=== PATIENT | male | born 1965 | race Caucasian/White ===

== ENCOUNTER → 2020-09-01 14:07 | Outpatient (BNVA) | payer OTHER, SELFPAY | PROVIDERS: PCP Internal Medicine; Visit Provider Urology | DX: N40.1 Benign prostatic hyperplasia with lower urinary tract symptoms (principal); R97.20 Elevated prostate specific antigen [PSA] | CPT/HCPCS: 51798 ==

== ENCOUNTER → 2021-10-05 10:15 | Outpatient (BNVA) | payer BC, SELFPAY | PROVIDERS: PCP Internal Medicine; Visit Provider Urology | DX: N40.1 Benign prostatic hyperplasia with lower urinary tract symptoms (principal); R97.20 Elevated prostate specific antigen [PSA] | CPT/HCPCS: 51798 ==

== ENCOUNTER → 2022-10-12 09:30 | Outpatient (BNVA) | payer BC, SELFPAY | PROVIDERS: PCP Internal Medicine; Visit Provider Urology | DX: R97.20 Elevated prostate specific antigen [PSA] (principal); N40.1 Benign prostatic hyperplasia with lower urinary tract symptoms; R39.14 Feeling of incomplete bladder emptying; R39.12 Poor urinary stream; R35.1 Nocturia | CPT/HCPCS: 51798 ==

== ENCOUNTER 2023-04-11 10:34 | Outpatient (AMB) | payer BC, SELFPAY ==
--- NOTE | 2023-04-11 10:34 | A.OFFVIS_ITS ---
Intake Intake Visit Reasons: 6m/PSA(set) Intake Note: Patient is present for Follow Up PSA Urology Med: None Antibiotic Allergy: None Blood Thinner: None Core Inserter Required: No Accompanied by: Self / Same As Patient Allergies No Known Allergies Allergy (Verified 10/12/22 09:43) HPI HPI Comments History of Present Illness Details Lavon LOPEZ is a very pleasant male. They are a patient of Dr Simon. They are seen in the office today for the following urologic conditions. - lower urinary tract symptoms - rising PSA Telemedicine Evaluation 15 min Consultation [employer] Crystal Video attempted Stable urinary performance with good flow PSA remaining relatively stable No lingering side effects from finasteride Continue 6 month review Will space out to 1 year if continued stability Known large prostate 85 g Lower Urinary Tract Symptoms: Effective emptying, good stream Current visit is for further evaluation of, lower urinary tract symptoms, predominate obstructive symptoms. Prior treatments include 01/08 , procedure - hospital [facility] Prostate Symptom Score 5/19 , Moderate (9-19), Bother 3. Symptoms include 09/07 , incomplete emptying, weak stream, nocturia (>2), and are progressing. Results from testing include renal/bladder us Yes date 07/29/2018 PVR 85 prostate size 100 Prior Prostate Score unknown. PSA 08/08 5.9 (slow climb over past 3 years) 08/09 PSA 3.1 Free 14%, 08/10 3.1, 08/11 4.7 15%, 03/13 2.4, 10/12 4.4 12%, 04/13 4.3 Prostate volume 50+gm Bladder US 100gm. Prior finasteride use showed decline in PSA however associated with side effects including decreased ejaculatory volume Treatment plan 6m PSA. [facility] Medical History Benign prostatic hyperplasia with lower urinary tract symptoms Elevated PSA Feeling of incomplete bladder emptying Urinary urgency Surgical History History of surgery Review of Systems Const All systems reviewed & are unremarkable except as noted in HPI and below Reports no additional complaints Resp Reports no additional complaints GI Reports no additional complaints Reports as per HPI Musc Reports no additional complaints Physical Exam Telemedicine evaluation Appropriate responses Regular breathing rate and rhythm HEENT Head: Yes normal to inspection Ears: hearing grossly normal bilaterally Eyes General: appearance normal, both eyes and all related structures Neck Neck: Yes normal visual inspection Chest Chest palpation & inspection: normal inspection of the chest Resp Effort & Inspection: normal respiratory effort and able to speak in complete sentences Assessment & Plan Assessment & Plan (1) Benign prostatic hyperplasia with lower urinary tract symptoms: Code(s): N40.1 - Benign prostatic hyperplasia with lower urinary tract symptoms (2) Elevated PSA: Code(s): R97.20 - Elevated prostate specific antigen [PSA] Plan Six month follow-up Orders: Orders PSA,Total (Free>4and<10) 6 Months R97.20 - Elevated prostate specific antigen [PSA] Patient Instructions: Imaging studies, laboratory and physical exam results were discussed and reviewed in detail. No major barriers to patient understanding were identified. An opportunity to ask questions regarding the treatment plan was provided. All questions were answered. The patient expressed understanding and agreement with the above treatment plan. The patient is aware they should contact our office by phone for worsening of their current condition or the appearance of new urologic symptoms. Compliance is encouraged with any medications and followup testing that is ordered. It is a privilege to participate in the urologic care of your patient. If you have any questions or concerns regarding treatment for the above conditions, or other urologic issues, please do not hesitate to contact me. The office telephone contact is [phone]. This note is constructed using voice recognition software. While every effort has been made to ensure accuracy tire shop mechanic errors may have been included. Yours sincerely, Dr Azeem Werner MD, [facility] - Urology Providers of Expert, Compassionate Care for the Genitourinary System Telehealth Telehealth Location of provider rendering services: practice address Location of patient: address on file Patient Identification confirmed using: Name, : Yes Telehealth method: video Patient verbally consented to treatment: Yes Patient verbally consented to billing insurance company: Yes Patient informed of any privacy concerns related to visit: Yes Coding Level of Care Code Tele Est Pt Level 3 (23272) Diagnoses Benign prostatic hyperplasia with lower urinary tract symptoms N40.1 Elevated PSA R97.20
== END 2023-04-11 11:14 | disposition home or self-care (01) ==
LOC: HO.HUSH 10:34
PROVIDERS: PCP Internal Medicine; Visit Provider Urology
DX: N40.1 Benign prostatic hyperplasia with lower urinary tract symptoms (principal); R97.20 Elevated prostate specific antigen [PSA]
CPT/HCPCS: 99213

== ENCOUNTER → 2023-04-11 10:34 | Outpatient (BNVA) | payer BC, SELFPAY | PROVIDERS: PCP Internal Medicine; Visit Provider Urology ==

== ENCOUNTER 2023-10-17 10:22 | Outpatient (AMB) | payer BC, SELFPAY ==
--- NOTE | 2023-10-17 10:24 | MHC.OFFVIS ---
Intake Visit Reasons: 1Y PSA/PVR(SET) Intake Note: Patient is present for PSA/PVR Urology Medication:none Antibiotic Allergy:none Blood Thinner:none Recruiter Account Manager Required: No Allergies No Known Allergies Allergy (Verified 10/17/23 10:35) Medication List - Last Reconciled 10/17/23 by Azeem Werner MD citalopram 20 mg PO DAILY dorzolamide-timolol 22.3-6.8 mg/mL mL ophthalmic (eye) econazole 1% appl topical DAILY PRN ketoconazole 2% topical 2XW losartan-hydrochlorothiazide 100-12.5 mg 1 tab PO DAILY valacyclovir 0 mg PO HPI Comments Details: Lavon LOPEZ is a very pleasant male. They are a patient of Dr Simon. They are seen in the office today for the following urologic conditions. - lower urinary tract symptoms - rising PSA Stable urinary performance with good flow Slight rise in PSA to 5.3 Tissue negative at time of TURP Known large prostate 85 g Will move ahead with prostate MRI Lower Urinary Tract Symptoms: Effective emptying, good stream Current visit is for further evaluation of, lower urinary tract symptoms, predominate obstructive symptoms. Prior treatments include 01/08 , procedure - [facility] Prostate Symptom Score 5/19 , Moderate (9-19), Bother 3. Symptoms include 09/07 , incomplete emptying, weak stream, nocturia (>2), and are progressing. Results from testing include renal/bladder us Yes date 07/29/2018 PVR 85 prostate size 100 Prior Prostate Score unknown. PSA 08/08 5.9 (slow climb over past 3 years) 08/09 PSA 3.1 Free 14%, 08/10 3.1, 08/11 4.7 15%, 03/13 2.4, 10/12 4.4 12%, 04/13 4.3 , 10/13 5.3 Prostate volume 50+gm Bladder US 100gm. Prior finasteride use showed decline in PSA however associated with side effects including decreased ejaculatory volume [facility] Medical History Benign prostatic hyperplasia with lower urinary tract symptoms Elevated PSA Feeling of incomplete bladder emptying Urinary urgency Surgical History History of surgery Results AMB Urinalysis, Automated UA Leukoctes 0 Usha/uL Last Edit by Darien Chacon on 10/17/23 10:38 UA Nitrite Negative Last Edit by Darien Chacon on 10/17/23 10:38 UA Urobilinogen 0.2 mg/dL Last Edit by Darien Chacon on 10/17/23 10:38 UA Protein 0 mg/dL Last Edit by Darien Chacon on 10/17/23 10:38 UA pH 6.0 Last Edit by Darien Chacon on 10/17/23 10:38 UA Blood 0 Vsihal/uL Last Edit by [employer]hossein [email or web address] on 10/17/23 10:38 UA Specific [place] 1.005 Last Edit by [email or web address] on 10/17/23 10:38 UA Ketone Negative Last Edit by Darien Chacon on 10/17/23 10:38 UA Bilirubin 0 mg/dL Last Edit by Darien Chacon on 10/17/23 10:38 UA Glucose 0 mg/dL Last Edit by [employer] Chacon on 10/17/23 10:38 Results Reviewed Results Reviewed: Laboratory Last Values Urine pH (Auto) 6.0 10/17/23 10:37 Specific [place] (Auto) 1.005 10/17/23 10:37 Urine Protein (Auto) 0 mg/dL 10/17/23 10:37 Glucose (UA)(Auto) 0 mg/dL 10/17/23 10:37 Urine Ketones (Auto) Negative 10/17/23 10:37 Urine Blood (Auto) 0 Vishal/uL 10/17/23 10:37 Urine Nitrite (Auto) Negative 10/17/23 10:37 Urine Bilirubin (Auto) 0 mg/dL 10/17/23 10:37 Urine Urobilinogen (Auto) 0.2 mg/dL 10/17/23 10:37 Leukocyte Esterase (Auto) 0 Usha/uL 10/17/23 10:37 Assessment & Plan Assessment & Plan (1) Benign prostatic hyperplasia with lower urinary tract symptoms: Code(s): N40.1 - Benign prostatic hyperplasia with lower urinary tract symptoms Category: Medical (2) Elevated PSA: Code(s): R97.20 - Elevated prostate specific antigen [PSA] Category: Medical Plan Plan prostate MRI Orders: Orders AMB Urinalysis Automated Today Z13.9 - Encounter for screening, unspecified MR pelvis wo/w con Today R97.20 - Elevated prostate specific antigen [PSA] AMB Post Void Residual by ultrasound Today N40.1 - Benign prostatic hyperplasia with lower urinary tract symptoms Patient Instructions: Imaging studies, laboratory and physical exam results were discussed and reviewed in detail. No major barriers to patient understanding were identified. An opportunity to ask questions regarding the treatment plan was provided. All questions were answered. The patient expressed understanding and agreement with the above treatment plan. The patient is aware they should contact our office by phone for worsening of their current condition or the appearance of new urologic symptoms. Compliance is encouraged with any medications and followup testing that is ordered. It is a privilege to participate in the urologic care of your patient. If you have any questions or concerns regarding treatment for the above conditions, or other urologic issues, please do not hesitate to contact me. The office telephone contact is [phone]. This note is constructed using voice recognition software. While every effort has been made to ensure accuracy j2ee architect errors may have been included. Yours sincerely, Dr Aezem Werner MD, [facility] - Urology Providers of Expert, Compassionate Care for the Genitourinary System Coding Level of Care Code Est Pt Level 4 (45162) Diagnoses Benign prostatic hyperplasia with lower urinary tract symptoms N40.1 Elevated PSA R97.20
== END 2023-10-17 11:02 | disposition home or self-care (01) ==
PROVIDERS: PCP Internal Medicine; Visit Provider Urology
DX: N40.1 Benign prostatic hyperplasia with lower urinary tract symptoms (principal); R97.20 Elevated prostate specific antigen [PSA]; Z13.9 Encounter for screening, unspecified
CPT/HCPCS: 99214

== ENCOUNTER → 2023-10-17 10:22 | Outpatient (BNVA) | payer BC, SELFPAY | PROVIDERS: PCP Internal Medicine; Visit Provider Urology | DX: N40.1 Benign prostatic hyperplasia with lower urinary tract symptoms (principal); R33.8 Other retention of urine; R35.1 Nocturia; R39.12 Poor urinary stream; R97.20 Elevated prostate specific antigen [PSA] | CPT/HCPCS: 81003 ==

== ENCOUNTER 2023-12-11 15:13 | Outpatient (AMB) | payer BC, SELFPAY ==
--- NOTE | 2023-12-11 15:15 | MHC.OFFVIS ---
Intake Visit Reasons: MRI Follow Up Intake Note: Patient is present for MRI results Wharf Labourer Required: No Allergies No Known Allergies Allergy (Verified 10/17/23 10:35) HPI Comments Details: Lavon LOPEZ is a very pleasant male. They are a patient of Dr Simon. They are seen in the office today for the following urologic conditions. - lower urinary tract symptoms - rising PSA Telemedicine Evaluation 15 min Consultation [employer] Crystal Video attempted Follow-up from prostate MRI imaging Prostate MRI - 11/12 85 g gland, small area defined as PI-RADS 3 equivocal 5mm Stable urinary performance with good flow Slight rise in PSA to 5.3 Tissue negative at time of TURP Known large prostate 85 g Continue six-month surveillance Lower Urinary Tract Symptoms: Effective emptying, good stream Current visit is for further evaluation of, lower urinary tract symptoms, predominate obstructive symptoms. Prior treatments include 01/08 , procedure - [facility] Prostate Symptom Score 5/19 , Moderate (9-19), Bother 3. Symptoms include 09/07 , incomplete emptying, weak stream, nocturia (>2), and are progressing. Results from testing include renal/bladder us Yes date 07/29/2018 PVR 85 prostate size 100 Prior Prostate Score unknown. PSA 08/08 5.9 (slow climb over past 3 years) 08/09 PSA 3.1 Free 14%, 08/10 3.1, 08/11 4.7 15%, 03/13 2.4, 10/12 4.4 12%, 04/13 4.3 , 10/13 5.3 Bladder US 100gm. Prior finasteride use showed decline in PSA however associated with side effects including decreased ejaculatory volume [facility] Medical History Benign prostatic hyperplasia with lower urinary tract symptoms Elevated PSA Feeling of incomplete bladder emptying Urinary urgency Surgical History History of surgery Review of Systems Const All systems reviewed & are unremarkable except as noted in HPI and below Reports no additional complaints Resp Reports no additional complaints GI Reports no additional complaints Reports as per HPI Musc Reports no additional complaints Physical Exam Telemedicine evaluation Appropriate responses Regular breathing rate and rhythm HEENT Head: Yes normal to inspection Ears: hearing grossly normal bilaterally Eyes General: appearance normal, both eyes and all related structures Neck Neck: Yes normal visual inspection Chest Chest palpation & inspection: normal inspection of the chest Resp Effort & Inspection: normal respiratory effort and able to speak in complete sentences Telehealth Telehealth Telehealth Platform: [employer] Location of provider rendering services: practice address Location of patient: address on file Patient Identification confirmed using: Name, : Yes Telehealth method: video Patient verbally consented to treatment: Yes Patient verbally consented to billing insurance company: Yes Patient informed of any privacy concerns related to visit: Yes Minutes spent on Phone/Video with Pt.: 15 Assessment & Plan Assessment & Plan (1) Elevated PSA: Code(s): R97.20 - Elevated prostate specific antigen [PSA] Category: Medical (2) Benign prostatic hyperplasia with lower urinary tract symptoms: Code(s): N40.1 - Benign prostatic hyperplasia with lower urinary tract symptoms Category: Medical Plan Six-month follow-up imaging Orders: Orders PSA,Total (Free>4and<10) 6 Months R97.20 - Elevated prostate specific antigen [PSA] Patient Instructions: Imaging studies, laboratory and physical exam results were discussed and reviewed in detail. No major barriers to patient understanding were identified. An opportunity to ask questions regarding the treatment plan was provided. All questions were answered. The patient expressed understanding and agreement with the above treatment plan. The patient is aware they should contact our office by phone for worsening of their current condition or the appearance of new urologic symptoms. Compliance is encouraged with any medications and followup testing that is ordered. It is a privilege to participate in the urologic care of your patient. If you have any questions or concerns regarding treatment for the above conditions, or other urologic issues, please do not hesitate to contact me. The office telephone contact is [phone]. This note is constructed using voice recognition software. While every effort has been made to ensure accuracy catering administrative assistant errors may have been included. Yours sincerely, Dr Azeem Werner MD, [facility] - Urology Providers of Expert, Compassionate Care for the Genitourinary System Coding Level of Care Code Tele Est Pt Level 3 (38265) Diagnoses Elevated PSA R97.20 Benign prostatic hyperplasia with lower urinary tract symptoms N40.1
== END 2023-12-11 16:08 | disposition home or self-care (01) ==
LOC: HO.HUSH 15:13
PROVIDERS: PCP Internal Medicine; Visit Provider Urology
DX: R97.20 Elevated prostate specific antigen [PSA] (principal); N40.1 Benign prostatic hyperplasia with lower urinary tract symptoms
CPT/HCPCS: 99213

== ENCOUNTER → 2023-12-11 15:13 | Outpatient (BNVA) | payer BC, SELFPAY | PROVIDERS: PCP Internal Medicine; Visit Provider Urology ==

== ENCOUNTER 2024-12-30 11:37 | Outpatient (AMB) | payer BC, SELFPAY ==
--- NOTE | 2024-12-30 11:37 | MHC.OFFVIS ---
Intake Visit Reasons: 6m/PSA Intake Note: patient presents today for: telehealth 6mo/PSA urology medications: none blood thinners: none labs done 09/25/24: PSA 5.5 Marine Resource Economist Required: No Accompanied by: Self / Same As Patient Allergies No Known Allergies Allergy (Verified 12/30/24 11:38) HPI Comments Details: Lavon LOPEZ is a very pleasant male. They are a patient of Dr Simon. They are seen in the office today for the following urologic conditions. - lower urinary tract symptoms - rising PSA Telemedicine Evaluation 15 min Consultation [employer] Crystal Video attempted Discussed PSA Continue surveillance PSA surveillance - Prostate MRI - 11/12 85 g gland, small area defined as PI-RADS 3 equivocal 5mm Tissue negative at time of TURP Known large prostate 85 g Lower Urinary Tract Symptoms: Effective emptying, good stream Current visit is for further evaluation of, lower urinary tract symptoms, predominate obstructive symptoms. Prior treatments include 01/08 , procedure - [facility] Prostate Symptom Score 5/ , Moderate (9-19), Bother 3. Symptoms include 09/07 , incomplete emptying, weak stream, nocturia (>2), and are progressing. Results from testing include renal/bladder us Yes date 07/29/2018 PVR 85 prostate size 100 Prior Prostate Score unknown. PSA 08/08 5.9 (slow climb over past 3 years) 08/09 PSA 3.1 Free 14%, 08/10 3.1, 08/11 4.7 15%, 03/13 2.4, 10/12 4.4 12%, 04/13 4.3 , 10/13 5.3, 10/14 5.5 Bladder US 100gm. Prior finasteride use showed decline in PSA however associated with side effects including decreased ejaculatory volume [facility] Medical History Benign prostatic hyperplasia with lower urinary tract symptoms Elevated PSA Feeling of incomplete bladder emptying Urinary urgency Surgical History History of surgery Review of Systems Const All systems reviewed & are unremarkable except as noted in HPI and below Reports no additional complaints Resp Reports no additional complaints GI Reports no additional complaints Reports as per HPI Musc Reports no additional complaints Physical Exam Telemedicine evaluation Appropriate responses Regular breathing rate and rhythm HEENT Head: Yes normal to inspection Ears: hearing grossly normal bilaterally Eyes General: appearance normal, both eyes and all related structures Neck Neck: Yes normal visual inspection Chest Chest palpation & inspection: normal inspection of the chest Resp Effort & Inspection: normal respiratory effort and able to speak in complete sentences Telehealth Telehealth Telehealth Platform: [employer] Location of provider rendering services: practice address Location of patient: address on file Patient Identification confirmed using: Name, : Yes Telehealth method: video Patient verbally consented to treatment: Yes Patient verbally consented to billing insurance company: Yes Patient informed of any privacy concerns related to visit: Yes Minutes spent on Phone/Video with Pt.: 15 Assessment & Plan Assessment & Plan (1) Benign prostatic hyperplasia with lower urinary tract symptoms: Code(s): N40.1 - Benign prostatic hyperplasia with lower urinary tract symptoms Category: Medical (2) Elevated PSA: Code(s): R97.20 - Elevated prostate specific antigen [PSA] Category: Medical Plan Four month follow-up PSA Orders: Orders PSA,Total (Free>4and<10) 12 Months R97.20 - Elevated prostate specific antigen [PSA] Patient Instructions: This note is constructed using voice recognition software. While every effort has been made to ensure accuracy training and development officer errors may have been included. Imaging studies, laboratory and physical exam results were discussed and reviewed in detail. No major barriers to patient understanding were identified. An opportunity to ask questions regarding the treatment plan was provided. All questions were answered. The patient expressed understanding and agreement with the above treatment plan. The patient is aware they should contact our office by phone for worsening of their current condition or the appearance of new urologic symptoms. Compliance is encouraged with any medications and followup testing that is ordered. It is a privilege to participate in the urologic care of your patient. If you have any questions or concerns regarding treatment for the above conditions, or other urologic issues, please do not hesitate to contact me. The office telephone contact is [phone]. Sincerely, Dr Azeem Werner MD, [facility] - Urology Compassionate Specialist Care for the Genitourinary System Coding Level of Care Code Tele Est Pt Level 4 (29363) Diagnoses Benign prostatic hyperplasia with lower urinary tract symptoms N40.1 Elevated PSA R97.20
--- OUTSIDE RECORDS SUMMARY | 2024-12-30 14:46 | XMS_ITS | Clinical Summary ---
Author Organization [facility] Address [address] [place] [address] Care Team Providers Care Door To Door Selling Distributor Name Role Phone Teresa Lopez Primary Care Provider Unavailab le Medications Valsartan (DIOVAN) 40 MG tablet 0 04/06/2019 Active Active Problems Problem Noted Date Diagnosed Date High cholesterol 04/06/2019 Tinnitus of left ear 04/06/2019 Bilateral sensorineural hearing loss 04/06/2019 Family History Medical History Relation Name Comments Hypertension Other hypertension : Family History Relation Name Status Comments Other Social History Tobacco Use Types Packs/Day Years Used Date Smoking Tobacco: Never Assessed Sex and Gender Information Value Date Recorded Sex Assigned at Not on file Legal Sex Male 7:32 PM EDT Gender Identity Not on file Sexual Orientation Not on file Last Filed Vital Signs Vital Sign Reading Time Taken Comments Blood Pressure - - Pulse - - Temperature - - Respiratory Rate - - Oxygen Saturation - - Inhaled Oxygen Concentration - - Weight 109 kg (239 lb 15.9 oz) 04/06/2019 8:02 A M EST Height 188 cm (6' 2 ) 04/06/2019 8:02 AM EST Body Mass Index 30.81 04/06/2019 8:02 AM EST Plan of Treatment Health Maintenance Due Date Last Done Comments Hepatitis C Screening 1965 DTaP/Tdap/Td (1 - Tdap) 1981 Pneumococcal 50+ years (1 of 1 - PCV) 2013 Zoster (Shingrix) (1 of 2) 2013 COVID-19 Vaccine ( - 2023-2 5 season) 2024 Influenza (#1) 2024 RSV (1 - 1-dose 75+ series) 2038 HPV Vaccine (No Doses Required) Completed Hep A Aged Out No longer eligi ble based on patient's age to complete this topic Hep B Aged Out No longer eligi ble based on patient's age to complete this topic Hib Aged Out No longer eligi ble based on patient's age to complete this topic Meningococcal ACWY Aged Out No longer eligible based on patient's age to complete this topic Zoster (Zostavax) Discontinued Care Teams Door To Door Selling Distributor Relationship Specialty Start Date End Date Teresa Lopez PCP - General 11/26/22
--- OUTSIDE RECORDS SUMMARY | 2024-12-30 14:46 | XMS_ITS | Encounter Summary ---
Author Organization [facility] Address [address] [place] [id number] Care Team Providers Care Shearing Shed Hand Name Role Phone Kaden Gimenez MD Primary Care Provider Reddy Chavez MD Unavailable Encounter Details Date Type Department Care Team (Late st Contact Info) Description 01/07/2024 Scanned Document [facility] [address] [phone] Sanford Kaiser MD [address] [id number] Social History Tobacco Use Types Packs/Day Years Used Date Smoking Tobacco: Never Smokeless Tobacco: Never Alcohol Use Standard Drinks/Week Comments Not Currently 2 (1 standard drink = 0.6 oz pur e alcohol) Sex and Gender Information Value Date Recorded Sex Assigned at Male 12/01/2022 11:41 AM EDT Legal Sex Male 8:57 AM EDT Gender Identity Male 12/01/2022 11:41 AM EDT Sexual Orientation Heterosexual (straight) 12/01 11:41 AM EDT documented as of this encounter Plan of Treatment Not on file documented as of this encounter Visit Diagnoses Not on filedocumented in this encounter Care Teams Shearing Shed Hand Relationship Specialty Start Date End Date Kaden Gimenez MD [address] [place] [id number] PCP - General Internal Medicine 01/28/23 Reddy Chavez MD [address] [place] [address] Gastroenterology 05/02/23 documented as of this encounter
--- OUTSIDE RECORDS SUMMARY | 2024-12-30 14:46 | XMS_ITS | Encounter Summary ---
Author Organization [facility] Address [address] [place] [id number] Care Team Providers Care Consumer Affairs Manager Name Role Phone Kaden Gimenez MD Primary Care Provider Reddy Chavez MD Unavailable Encounter Details Date Type Department Care Team (Late st Contact Info) Description 01/07/2024 Scanned Document [facility] [address] [phone] Sanford Kaiser MD [address] [address] Social History Tobacco Use Types Packs/Day Years [...] on filedocumented in this encounter Care Teams Consumer Affairs Manager Relationship Specialty Start Date End Date Kaden Gimenez MD [address] [place] [phone] PCP - General Internal Medicine 01/28/23 Reddy Chavez MD [address] [place] [address] Gastroenterology 05/02/23 documented as of this encounter
--- OUTSIDE RECORDS SUMMARY | 2024-12-30 14:46 | XMS_ITS | Encounter Summary ---
Author Organization Formerly [facility] Address [address] [place] [address] Care Team Providers Care Financial Systems Administrator Name Role Phone Kaden Gimenez MD Primary Care Provider [phone] Reddy Chavez MD Unavailable [phone] Encounter Details Date Type Department Care Team (Late st Contact Info) Description 02/21/2024 Scanned Document [facility] [address] [id number] [place] [address] Social History Tobacco Use Types Packs/Day Years [...] on filedocumented in this encounter Care Teams Financial Systems Administrator Relationship Specialty Start Date End Date Kaden Gimenez MD [address] [place] [address] [address] [id number] PCP - General Internal Medicine 01/28/23 Reddy Chavez MD [address] [place] [address] Gastroenterology 05/02/23 documented as of this encounter
--- OUTSIDE RECORDS SUMMARY | 2024-12-30 14:46 | XMS_ITS ---
Author Name [facility] Organization Unknown History of Medication Use Medication Directions Dispensed Refills Start Date End Date Stat us Instill 1 drop into both eyes twice a day. 04/27/2024 completed Glucosamine Chondroitin 1500/1200 Capsule 02/28/2024 active amLODIPine (NORVASC) 5 MG tablet 11/26/2022 active valACYclovir (VALTREX) 1000 MG tablet TAKE TWO TABLETS BY MOUTH TWICE A DAY FOR 1 DAY NEEDED FOR COLD SORES 10/10/2022 active 1 drop both eyes twice a day 10/13/2020 completed citalopram completed Instill 1 drop into both eyes twice a day. ALTERNATIVE TO DORZOLAMIDE-TIMOLO L completed finasteride completed dorzolamide (drops) Instill 1 drop into both eyes twice a day. ALTERNATIVE TO DORZOLAMIDE-TIMOLO L completed dorzolamide 2 % eye drops active losartan completed Allergies Allergen Reaction Severity Comment Documented Date Source Statu s .NO KNOWN DRUG ALLERGIES ENS_POD CRCT Problems Problem Status Onset Date Problem Type Date of Resolution Source Acquired trigger finger of right middle finger (disorder) active 2023-11-12 ProblemAct [facility] Sacroiliitis, not elsewhere classified active EncounterDiagnosisAct [facility] [id number] - Tinea pedis active 2024-06-05 EncounterDiagnosisAct ENS_PO DCRCT Tinea unguium, onychomycosis active 2024-06-05 EncounterDiagnosisAct ENS_P ODCRCT Encounters Encounter Type Encounter Reason Primary Diagnosis Location Date Ambulatory House [facility] 11/20 Ambulatory Trigger finger, right middle finger Trigger finger, right middle finger [facility] 09/29/2024 Ambulatory Follow-up Follow[facility]up [facility] 06/30/2024 Ambulatory Trigger finger, right middle finger Trigger finger, right middle finger [facility] 04/17/2024 Ambulatory CREATE Sacroiliitis, no t elsewhere classified [facility] 04/13/2024 Ambulatory Follow-up Follow-up [facility] [employer] [facility] 04/02/2024 Ambulatory [facility] 03/22 Ambulatory Trigger finger, right middle finger Trigger finger, right middle finger [facility] 03/17/2024 [place] [employer] [facility] 03/09/2024 Ambulatory Unilateral primary osteoarthritis, right knee Unilateral primary osteoarthritis, right knee [facility] 03/09/2024 Ambulatory Trigger finger, right middle finger Trigger finger, right middle finger [facility] 03/05/2024 Ambulatory MODIFY Trigger finger, right middle finger [facility] [place] 03/02/2024 Ambulatory Trigger finger, right middle finger Trigger finger, right middle finger [facility] 03/02/2024 Ambulatory Follow-up Follow-up [place] [employer] [facility] 02/20/2024 Ambulatory [facility] 2023 Ambulatory [employer] 01/20 Ambulatory Trigger finger, right middle finger Trigger finger, right middle finger [facility] 02/04/2024 Ambulatory [place] [employer] [facility] [employer] 01/02/2024 Ambulatory Pain Pain [facility] [employer] [facility] 01/02/2024 Ambulatory Pain in right hip Pain in right hip [facility] [employer] 01/01/2024 Ambulatory Trigger finger, right middle finger Trigger finger, right middle finger [facility] 12/31/2023 Ambulatory [place] [employer] 12/25/2023 Ambulatory Pain in right hip Pain in right hip [facility] [employer] 12/17/2023 Ambulatory Pain in right hip Pain in right hip [facility] [employer] 12/10/2023 Ambulatory [facility] [employer] 12/03/2023 Ambulatory [facility] [employer] 11/20/2023 Ambulatory Pain Pain [facility] [employer] 11/18/2023 Ambulatory Pain in right hip Pain in right hip [facility] [employer] 11/12/2023 Ambulatory Carpal tunnel syndrome, left upper limb Carpal tunnel syndrome, left upper limb [facility] 11/12/2023 Ambulatory Pain in right hip Pain in right hip [facility] [employer] 11/08/2023 Ambulatory Pain in right hip Pain in right hip [facility] [employer] 10/29/2023 Ambulatory Pain in right hip Pain in right hip [facility] 10/22/2023 Ambulatory Pain in right hip Pain in right hip [facility] 10/16/2023 Ambulatory [facility] 10/10/2023 Ambulatory Pain in right hip Pain in right hip [facility] 10/01/2023 Ambulatory [facility] 09/09/2023 Ambulatory Pain in right hip Pain in right hip [facility] 09/09/2023 Ambulatory [employer] [facility] 07/21 Ambulatory Carpal tunnel syndrome, right upper limb Carpal tunnel syndrome, right upper limb [facility] [place] 07/16/2023 Ambulatory Carpal tunnel syndrome, left upper limb Carpal tunnel syndrome, left upper limb [facility] 06/24/2023 Ambulatory Carpal tunnel syndrome, right upper limb Carpal tunnel syndrome, right upper limb [facility] [place] 06/12/2023 Ambulatory Carpal tunnel syndrome, right upper limb Carpal tunnel syndrome, right upper limb [facility] 06/10/2023 Ambulatory CREATE Carpal tunnel syndrome, left upper limb [facility] 06/10/2023 Ambulatory Lesion of ulnar nerve, right upper limb Lesion of ulnar nerve, right upper limb [facility] [place] 05/29/2023 Ambulatory Carpal tunnel syndrome, right upper limb Carpal tunnel syndrome, right upper limb [facility] 05/27/2023 Ambulatory MODIFY [facility] 05/27/2023 Ambulatory Encounter for screening for malignant neoplasm of colon Encounter for screening for malignant neoplasm of colon [facility] 05/22/2023 Ambulatory [facility] Care Team Organization Name Specialty Phone Email Start Date End [facility] 03/30/2024 [facility] FABIÁN SEVILLA Primary Care 1 04/29/2023 [facility] 02/07/2024 [facility] 02/07/[address] [employer] [facility] 08/02/2023 [facility] 05/27/202305/27 [facility] 05/22/2023 08/04/2024 [facility] Tristan Verma Primary Care 12/27/2024 [facility] Bayron Hudson [facility] 12/202312/27/2024 [facility] FABIÁN KENNARD Primary [facility]
--- OUTSIDE RECORDS SUMMARY | 2024-12-30 14:46 | XMS_ITS | Encounter Summary ---
Author Organization [facility] Address [address] [place] [address] Care Team Providers Care Animal Ecologist Name Role Phone Kaden Gimenez MD Primary Care Provider [phone] Reddy Chavez MD Unavailable [phone] Reason for Referral * Outpatient Surgery (Routine) - Closed Specialty Diagnoses / Procedures Referred By Suki lindsey Referred To Contact Surgery, Orthopedic Diagnoses Sacroiliitis, not elsewhere classified Sanford Kaiser MD [address] [place] [address] Phone: tel: fax: Referral ID Status Reason Start Date Expiration Date Visits Re quested Visits Authorized [id number] Closed 04/02/2024 04/03/2025 1 1 Question Answer Primary Procedure: 10147 - FLUOR SAC INJ Additional Procedure(s): None Procedure: RIGHT SACROILIAC JOINT INJECTION Surgery Date 04/13/2024 Performing Location: [facility] Duration (Mins): 15 Laterality: Right Anesthesia: LOCAL Workers Comp? No Encounter Details Date Type Department Care Team (Late st Contact Info) Description 04/02/2024 CC Surg Order [facility] [address] [phone] Sanford Kaiser MD [address] [place], [place] [id number] Sacroiliitis, not elsewhere classified (HCC) (Primary Dx) Social History Tobacco Use Types Packs/Day Years [...] as of this encounter Plan of Treatment Scheduled Referrals Name Type Priority Associated Diagnoses Order Schedule RIGHT SACROILIAC JOINT INJECTION Outpatient Referral Routine Sacroiliitis, not elsewhere classified (HCC) Ordered: 04/02/2024 documented as of this encounter Visit Diagnoses Diagnosis Sacroiliitis, not elsewhere classified- Primary documented in this encounter Care Teams Animal Ecologist Relationship Specialty Start Date End Date Kaden Gimenez MD [address] [place] [address] [address] [place] [address] PCP - General Internal Medicine 01/28/23 Reddy Chavez MD [address] [facility] [address] [place] [address] Gastroenterology 05/02/23 documented as of this encounter
--- OUTSIDE RECORDS SUMMARY | 2024-12-30 14:46 | XMS_ITS | Encounter Summary ---
Author Organization [facility] Address [address] [place] [address] Care Team Providers Care Bingo Clerk Name Role Phone Kaden Gimenez MD Primary Care Provider [phone] Reddy Chavez MD Unavailable [phone] Encounter Details Date Type Department Care Team (Late st Contact Info) Description 04/13/2024 Scanned Document [facility] [address] [phone] Sanford Kaiser MD [address] [place], [place] [id number] Social History Tobacco Use Types Packs/Day Years [...] on filedocumented in this encounter Care Teams Bingo Clerk Relationship Specialty Start Date End Date Kaden Gimenez MD [address] [place], [place] [phone] PCP - General Internal Medicine 01/28/23 Reddy Chavez MD [address] [place] [address] Gastroenterology 05/02/23 documented as of this encounter
--- OUTSIDE RECORDS SUMMARY | 2024-12-30 14:46 | XMS_ITS | Encounter Summary ---
Author Organization [facility]ly [facility] Address [address] [place] [address] Care Team Providers Care Airborne Mission Systems Superintendent Name Role Phone Kaden Gimenez MD Primary Care Provider Reddy Chavez MD Unavailable [phone] Encounter Details Date Type Department Care Team (Late st Contact Info) Description 05/22/[address] [facility] [address] [facility] [address] [place] [address] Reddy Chavez MD [address] [facility] [address] [place] [address] Social History Tobacco Use Types Packs/Day Years [...] on file documented as of this encounter Procedures Procedure Name Priority Date/Time Associated Diagnosis Comments PATHOLOGY REPORT 05/22/2023 12:0 0 AM EST documented in this encounter Results * PATHOLOGY REPORT (05/22/2023 12:00 AM EST) Reddy Chavez MD PATHOLOGY/CYTOLOGY ORDERABLE S Final Result documented in this encounter Visit Diagnoses Not on filedocumented in this encounter Care Teams Airborne Mission Systems Superintendent Relationship Specialty Start Date End Date Kaden Gimenez MD [address] [facility] [place] [address] [place] [address] PCP - General Internal Medicine 01/28/23 Reddy Chavez MD [address] [facility] [address] [place] [address] Gastroenterology 05/02/23 documented as of this encounter
--- OUTSIDE RECORDS SUMMARY | 2024-12-30 14:46 | XMS_ITS | Clinical Summary ---
Author Organization [facility] Address [address] [place] [address] Care Team Providers Care Welfare Supervisor Name Role Phone Kaden Simon MD Primary Care Provider [phone] Surgical History Surgery Date Site/Laterality Comments LUMBAR FUSION PROCEDURE:LUMBAR FUSION HERNIA REPAIR PROCEDURE:HERNIA REPAIR TRANSURETHRAL RESECTION OF PROSTATE PROCEDURE:TRANSURETHRAL RESECTION OF PROSTATE Medical History Medical History Date Comments Hypertension DX:Hypertension PVC's (premature ventricular contractions) DX:PVC's (premature ventricu lar contractions) Family History Medical History Relation Name Comments Breast cancer Sister Nephrolithiasis Neg Hx Prostate cancer Neg Hx Relation Name Status Comments Sister Social History Tobacco Use Types Packs/Day Years Used Date Smoking Tobacco: Never Smokeless Tobacco: Never Alcohol Use Standard Drinks/Week Comments No 0 (1 standard drink = 0.6 oz pur e alcohol) Sex and Gender Information Value Date Recorded Sex Assigned at Not on file Legal Sex Male 3:43 AM EST Gender Identity Not on file Sexual Orientation Not on file Obstetrics History Plan of Treatment Health Maintenance Due Date Last Done Comments DTaP,Tdap,and Td Vaccines (1 - Tdap) 1982 Pneumococcal Vaccine: 50+ Ye ars (1 of 1 - PCV) 2013 Zoster Vaccines (1 of 2) 2013 Cholesterol Screening (Lipid Panel) 01/28/2024 Colorectal Cancer Screening: Colonoscopy 01/28/2024 HIV Screening 01/28/2024 Hepatitis C Screening 01/28/2024 Hypertension/CHF/CAD Annual BMP Blood Test 01/28/2024 Social Influencers of Health Screening 01/28/2024 Depression Screening 04/22/2024 COVID-19 Vaccine (2023-2 5 season) 2024 Influenza Vaccine (#1) 2024 RSV Immunization Adult Patie nts (1 - 1-dose 75+ series) 2038 HIB Vaccines Aged Out No longer eligi ble based on patient's age to complete this topic HPV Vaccines Aged Out No longer eligi ble based on patient's age to complete this topic Hepatitis A Vaccines Aged Out No long er eligible based on patient's age to complete this topic Hepatitis B Vaccines Aged Out No long er eligible based on patient's age to complete this topic IPV Vaccines Aged Out No longer eligi ble based on patient's age to complete this topic MMR Vaccines Aged Out No longer eligi ble based on patient's age to complete this topic Meningococcal ACWY Vaccine Aged Out N o longer eligible based on patient's age to complete this topic Meningococcal B Vaccine Aged Out No l onger eligible based on patient's age to complete this topic RSV Immunization Patients Un lizz 20 months Aged Out No longer eligible b ased on patient's age to complete this topic Varicella Vaccines Aged Out No longer eligible based on patient's age to complete this topic Care Teams Welfare Supervisor Relationship Specialty Start Date End Date Kaden Simon MD PCP - General Children'S Counselor 04/30/17
--- OUTSIDE RECORDS SUMMARY | 2024-12-30 14:46 | XMS_ITS | Clinical Summary ---
Author Organization [facility] Address [address] [place] [address] Care Team Providers Care Customer Experience Retail Clerk Name Role Phone Kaden Gimenez MD Primary Care Provider [phone] Allergies No known active allergies Medications Medication Sig Dispensed Refills Start Date End Date Status losartan-hydrochloroth iazide (HYZAAR) 100-12.5 MG per tablet 0 05/27/2016 Ac tive acetaminophen (TYLENOL) 80 MG chewable tablet Chew 80 mg by mouth every 4 (four) hours as needed for pain. 0 Active [place]-3 Fatty Acids (FISH OIL CONCENTRATE PO) Take by mouth. 0 Active CALCIUM PO Take by mouth. 0 Active Lactobacillus (PROBIOTIC ACIDOPHILUS PO) Take by mouth. 0 Active Misc Natural Products (GLUCOSAMINE CHOND COMPLEX/MSM PO) Take by mouth. 0 Activ e ValACYclovir HCl (VALTREX PO) Take by mouth. 0 Active tamsulosin (FLOMAX) 0.4 MG CAPS Take 0.4 mg by mouth daily. 0 04/01/2017 Active dutasteride (AVODART) 0.5 MG capsule Take 0.5 mg by mouth daily. 1 01/19/2019 Active nitrofurantoin (MACRODANTIN) 50 MG capsule TAKE ONE CAPSULE BY MOUTH EVERY DAY FOR 10 DAYS 0 01/19/2019 Active traMADol (ULTRAM) 50 MG tablet Take 50 mg by mouth every 8 (eight) hours as needed. for pain 0 01/19/2019 Active Active Problems Problem Noted Date Diagnosed Date Essential hypertension 04/30/2017 PVC's (premature ventricular contractions) 04/30 Palpitations 04/30/2017 Family History Medical History Relation Name Comments [...] Value Date Recorded Sex Assigned at Male 01/20/2019 7:08 PM EDT Gender Identity Not on file Sexual Orientation Not on file Last Filed Vital Signs Vital Sign Reading Time Taken Comments Blood Pressure 171/106 01/20/2019 6:43 PM EDT RN notified Pulse 67 01/20/2019 6:43 PM EDT Temperature 36.7 C (98.1 F) 01/20/2019 6:43 PM EDT Respiratory Rate 16 01/20/2019 6:43 PM EDT Oxygen Saturation 94% 01/20/2019 6:43 PM EDT Inhaled Oxygen Concentration - - Weight 108.9 kg (240 lb) 01/20/2019 6:43 PM EDT Height 188 cm (6' 2 ) 01/20/2019 6:43 PM EDT Body Mass Index 30.81 01/20/2019 6:43 PM EDT Plan of Treatment Health Maintenance Due Date Last Done Comments Hepatitis C Screening 1965 COVID-19 Vaccine (#1) 1963 Depression Screening 1975 BMI Counseling 1981 Preventative Health Evaluation 1981 DTap / Tdap / Td (1 - Tdap) 1982 Colon Cancer Screening (Colonoscopy) 02/24/2008 Shingrix-Zoster Vaccine (1 of 2) 2013 Influenza Vaccine (#1) 2024 RSV Adult > 60+ Yrs or Pregn ant (1 - 1-dose 75+ series) 2038 Hepatitis B Vaccines Aged Out No long er eligible based on patient's age to complete this topic Pneumococcal Vaccine Aged Out No long er eligible based on patient's age to complete this topic RSV Ped < 20 months Aged Out No longe r eligible based on patient's age to complete this topic Care Teams Customer Experience Retail Clerk Relationship Specialty Start Date End Date Kaden Gimenez MD [address] [place], [place] [id number] PCP - General Appointment Specialist 04/30/17
--- OUTSIDE RECORDS SUMMARY | 2024-12-30 14:46 | XMS_ITS | Clinical Summary ---
Author Organization [facility] Address [address] [place] [address] Care Team Providers Care Horse Identifier Name Role Phone Kaden Gimenez MD Primary Care Provider [phone] Reddy Chavez MD Unavailable [phone] Allergies No known active allergies Medications amLODIPine (NORVASC) 5 MG tablet 11/26/2022 Active losartan-hydroC HLOROthiazide (HYZAAR) 100-12.5 MG per tablet 09/27/2022 Active valACYclovir (VALTREX) 1000 MG tablet TAKE TWO TABLETS BY MOUTH TWICE A DAY FOR 1 DAY NEEDED FOR COLD SORES 10/10/2022 Active Active Problems No known active problems Social History Tobacco Use Types Packs/Day Years Used Date Smoking Tobacco: Never Smokeless Tobacco: Never Tobacco Cessation:Counseling Given: Not Answered Alcohol Use Standard Drinks/Week Comments Not Currently 2 (1 standard drink = 0.6 oz pur e alcohol) Sex and Gender Information Value Date Recorded Sex Assigned at Male 12/01/2022 11:41 AM EDT Legal Sex Male 8:57 AM EDT Gender Identity Male 12/01/2022 11:41 AM EDT Sexual Orientation Heterosexual (straight) 12/01 11:41 AM EDT Last Filed Vital Signs Vital Sign Reading Time Taken Comments Blood Pressure 152/88 04/02/2024 8:15 AM EST Pulse 59 04/02/2024 8:15 AM EST Temperature 36.6 C (97.8 F) 05/22/2023 11:25 AM EST Respiratory Rate 16 05/22/2023 11:55 AM EST Oxygen Saturation 99% 04/02/2024 8:15 AM EST Inhaled Oxygen Concentration - - Weight 109 kg (240 lb) 04/02/2024 8:15 AM EST Height 188 cm (6' 2 ) 04/02/2024 8:15 AM EST Body Mass Index 30.81 04/02/2024 8:15 AM EST Plan of Treatment Health Maintenance Due Date Last Done Comments Hepatitis C Virus Screening 1965 HIV Screening 02/24/1976 DTaP/Tdap/Td Vaccines (1 - Tdap) 1982 Pneumococcal Vaccines 50+ (1 of 1 - PCV) 2013 Zoster (Shingles) Vaccine (1 of 2) 2013 Influenza Vaccine 11/20/2024 02/02/2024, , 01/20/2022, Additional history exists Colonoscopy 05/22/2033 05/22/2023 RSV Vaccine 60 years and older and Patients (1 - 1-dose 75+ series) 2038 COVID-19 Vaccine Completed 02/02/2024, , 05/08/2022, Additional history exists Hepatitis B Vaccines Aged Out No long er eligible based on patient's age to complete this topic Insurance [facility] PPO [id number] [place] [address] PPO Care Teams Horse Identifier Relationship Specialty Start Date End Date Kaden Gimenez MD [address] [facility] [address] [place] [address] PCP - General Internal Medicine 01/28/23 Reddy Chavez MD [address] [facility] [address] [place] [address] Gastroenterology 05/02/23
== END 2024-12-30 14:38 | disposition home or self-care (01) ==
LOC: HO.HUSH 11:37
PROVIDERS: PCP Internal Medicine; Visit Provider Urology
DX: N40.1 Benign prostatic hyperplasia with lower urinary tract symptoms (principal); R97.20 Elevated prostate specific antigen [PSA]
CPT/HCPCS: 99214